=== PATIENT | male | born 1985 | race Caucasian/White ===

== ENCOUNTER 2021-10-27 10:56 | Emergency (ER) | payer OTHER ==
[~2021-10-27] VITALS: Ht 182.9 cm; Wt 79.5 kg
[2021-10-27] MEDS ORDERED: LIDOCAINE HCL/EPINEPHRINE 1%-EPI 1:100,000 20 ML VIAL INFIL ONE (12:30)
[2021-10-27] MEDS ORDERED: BACITRACIN ZINC OINT UDPKT TOP ONE (12:30)
[2021-10-27] MEDS ORDERED: POVIDONE-IODINE 10% TOPICAL SOLN 240ML TOP NR (12:45)
[2021-10-27] MEDS ORDERED: IBUPROFEN 400MG TABLET PO NR (12:45)
[2021-10-27] MEDS ORDERED: TETANUS, DIPHTHERIA, PERTUSSIS VAC/PF 0.5ML (>10YR OLD) IM ONE (13:00)
[2021-10-27] MEDS ORDERED: NAPR-677 MT (14:36)
[2021-10-27 15:21] VITALS: BP 138/81
== END 2021-10-27 15:21 | disposition home or self-care (01) ==
LOC: ER 10:56
DX: S01.112A Laceration without foreign body of left eyelid and periocular area, initial encounter (principal); H91.3 Deaf nonspeaking, not elsewhere classified; V03.90XA Pedestrian on foot injured in collision with car, pick-up truck or van, unspecified whether traffic or nontraffic accident, initial encounter; Y93.01 Activity, walking, marching and hiking; Y92.89 Other specified places as the place of occurrence of the external cause; Z88.0 Allergy status to penicillin
CPT/HCPCS: 12013; 70450; 70486; 90471; 90715; 99284; J3490

== ENCOUNTER 2021-11-03 14:26 | Emergency (ER) | payer OTHER ==
[~2021-11-03] VITALS: Ht 190.5 cm; Wt 70.0 kg
[~2021-11-03 14:26] MED LIST: NAPR-677 MT
[2021-11-03 14:30] VITALS: BP 151/85
== END 2021-11-03 16:09 | disposition home or self-care (01) ==
LOC: ER 14:26
DX: Z48.02 Encounter for removal of sutures (principal); Z88.0 Allergy status to penicillin
CPT/HCPCS: 99281